=== PATIENT | male | born 1995 | race Asian ===

== ENCOUNTER 2016-06-22 10:16 | Emergency (ER) | payer OTHER ==
[~2016-06-22] VITALS: Ht 175.3 cm; Wt 63.0 kg
[2016-06-22 10:21] VITALS: TEMP 37.8; Ht 175.3 cm; Wt 63.0 kg
[2016-06-22] MEDS ORDERED: IBUPROFEN 600 MG TAB PO STA (10:30)
[2016-06-22] MEDS ORDERED: ALBUTEROL HFA 8 GM INHALER INH ONE (10:30)
[2016-06-22] MEDS ORDERED: ACETAMINOPHEN 325 MG TAB PO STA (10:30)
--- NOTE | 2016-06-22 10:38 | EMERGENCY ROOM VISIT NOTE ---
History Report prepared by Neoibchris: Glenda Grubbs Under the Supervision of: Dr. Joce Horan M.D. First contact with patient: 10:25 Chief Complaint: FEVER Stated Complaint: FEVER History of Present Illness The patient is a 21 year old male who presents to the Emergency Room with complaints of a persistent fever that started yesterday. He took 1 Tylenol last night which has provided minimal relief. He admits to a cough, congestion and some loose stools, but denies any vomiting. He denies any recent sick contacts. He did not receive a flu shot this year. The patient recently returned to the country from [place] 8 days ago. He states he did experience some cold symptoms while in [place], but did not start running a fever until yesterday. He denies any shortness of breath or difficulty breathing. The patient denies any chronic medical problems. Source of History: patient Onset: yesterday Position: other (global) Timing: other (persistent) Modifying Factors (Relieving): tylenol Associated Symptoms: + cough, + diarrhea, No SOB, No vomiting Review of Systems See HPI for pertinent positives & negatives. A total of 10 systems reviewed and were otherwise negative. Past Medical & Surgical Medical Problems: (1) No significant past medical history Social History Smoking Status: Never Smoker Alcohol Use: occasionally Drug Use: none Marital Status: single Housing Status: lives with roommate Occupation Status: [employer] student Current/Historical Medications Scheduled Acetaminophen (Tylenol), 325 MG PO Q8 Allergies Coded Allergies: No Known Allergies (Unverified , 06/22/16) Physical Exam Vital Signs Date Time Temp Pulse Resp B/P Pulse Ox O2 Delivery O2 Flow Rate FiO2 06/22/16 12:28 104 18 115/73 93 Room Air 06/22/16 10:21 37.8 119 18 123/78 95 Room Air Physical Exam GENERAL: Patient is in no acute distress. HEENT: No acute trauma, normocephalic atraumatic, mucous membranes moist, mild nasal congestion, no throat erythema or exudate, no scleral icterus. NECK: No stridor, no adenopathy, no meningismus, trachea is midline. LUNGS: Diminished breath sounds bilaterally, breath sounds are equal, no wheezing or rhonchi or respiratory distress. HEART: Tachycardic heart rate with subtle systolic murmur, rhythm is regular. ABDOMEN: Soft, nontender, bowel sounds positive, no hernias, no peritonitis. EXTREMITIES: No cyanosis or edema, full range of motion of all the joints without pain or difficulty, no signs for acute trauma. NEUROLOGIC: Oriented x 3, no acute motor or sensory deficits, no focal weakness. SKIN: No rash, no jaundice, no diaphoresis. Medical Decision & Procedures ER Provider Diagnostic Interpretation: This X-Ray was reviewed and interpreted by myself and the radiologist. CHEST ONE VIEW PORTABLE IMPRESSION: No active disease in the chest. Electronically signed by: Matt Camacho M.D. 06/22/2016 10:52 AM Laboratory Results Test 06/22/16 10:34 Influenza Type A Antigen Neg for Influ A (NEG) Influenza Type B Antigen Neg for Influ B (NEG) Laboratory results reviewed by me. Medications Administered Medications (Trade) Dose Ordered Sig/Ermias Route Start Time Stop Time Status Last Admin Dose Admin Ibuprofen (Motrin Tab) 600 mg NOW STAT PO 06/22/16 10:30 06/22/16 10:33 DC 06/22/16 10:42 600 MG Acetaminophen (Tylenol Tab) 650 mg NOW STAT PO 06/22/16 10:30 06/22/16 10:33 DC 06/22/16 10:42 650 MG Albuterol (Ventolin Hfa Inhaler) 3 puffs NOW ONCE INH 06/22/16 10:30 06/22/16 10:33 DC 06/22/16 10:42 3 PUFFS ED Course 1028: The patient was evaluated in room A3. A complete history and physical exam was performed. 1030: Albuterol 3 puffs INH, Acetaminophen 650 mg PO, Ibuprofen 600 mg PO. 1225: I reevaluated the patient. He is feeling much better. I discussed his results and discharge instructions and he verbalized complete understanding and agreement. Medical Decision The differential diagnoses considered include: Pneumonia, flu-like illness, bronchitis, pharyngitis and influenza. The patient presents with flulike symptoms. On exam, he was not toxic. He was not hypoxic. Lungs sounded clear but diminished. Chest x-ray shows no pneumonia or CHF. Influenza testing was negative. The patient received oral Motrin and oral Tylenol. He received albuterol via [facility]. He is being discharged with [id number] fever and pain control. Hydration, rest were encouraged. He can continue the albuterol for bronchospasm. His illness is very likely viral. Antibiotics are not indicated. Impression Primary Impression: Fever Additional Impression: Flu-like symptoms Scribe Attestation The scribe's documentation has been prepared under my direction and personally reviewed by me in its entirety. I confirm that the note above accurately reflects all work, treatment, procedures, and medical decision making performed by me. Departure Information Dispostion Home / Self-Care Patient Instructions My [facility] Additional Instructions rest fluids motrin and or tylenol for fever and aches albuterol 3 puffs every 6 hours wear the mask around others return for shortness of breath or worsening symptoms Problem Qualifiers
[2016-06-22] MEDS ORDERED: ACET-1311 PO (10:46)
--- NOTE | 2016-06-22 10:55 | DIAGNOSTIC IMAGING REPORT ---
CHEST ONE VIEW PORTABLE CLINICAL HISTORY: cough, fever COMPARISON STUDY: No previous studies for comparison. FINDINGS: The cardiac and mediastinal contours are normal. There is no evidence of focal pulmonary consolidation. There is no evidence of failure. No pleural effusions are visualized.[ IMPRESSION: No active disease in the chest. Electronically signed by: Matt Camacho M.D. 06/22/2016 10:52 AM Dictated Date/Time: 06/22/2016 10:52 AM
[2016-06-22 12:28] VITALS: BP 115/73; PULSE 104; O2SAT 93
== END 2016-06-22 12:40 | disposition home or self-care (01) ==
LOC: C.EDB 10:21 → C.EDA 12:40
DX: R50.9 Fever, unspecified (principal); R19.7 Diarrhea, unspecified; R05 Cough; R09.81 Nasal congestion